=== PATIENT | male | born 1965 | race Caucasian/White ===

== ENCOUNTER → 2021-10-12 | Outpatient (CLI) | payer BC ==
[~2021-10-12] MED LIST: ECOTRIN81 MG PO; FARXIGA10 MG PO; NORVASC10 MG PO; PRAVACHOL20 MG PO; TRADJENTA5 MG PO
== END ==
LOC: EXRD 10:57
DX: R22.42 Localized swelling, mass and lump, left lower limb (principal); M79.661 Pain in right lower leg
CPT/HCPCS: 93971

== ENCOUNTER 2022-05-18 15:05 | Outpatient (CLI) | payer BC, MEDICARE ==
[~2022-05-18 15:05] MED LIST changes: -PRAVACHOL20 MG PO; +PRAVASTATIN SOD20 MG PO
[2022-05-18] MEDS ORDERED: JANUVIA100 MG PO (15:17)
[2022-05-18] MEDS ORDERED: GLIMEPIRIDE4 MG PO (15:18)
== END 2022-05-18 15:49 | disposition short-term general hospital (02) ==
LOC: CATH 15:05 → CDU 15:05 → UNDOADMIN 15:05 → CATH 15:49
DX: I21.19 ST elevation (STEMI) myocardial infarction involving other coronary artery of inferior wall (principal); I25.10 Atherosclerotic heart disease of native coronary artery without angina pectoris; I25.5 Ischemic cardiomyopathy; I12.9 Hypertensive chronic kidney disease with stage 1 through stage 4 chronic kidney disease, or unspecified chronic kidney disease; E11.22 Type 2 diabetes mellitus with diabetic chronic kidney disease; E78.5 Hyperlipidemia, unspecified; N18.30 Chronic kidney disease, stage 3 unspecified
CPT/HCPCS: 85347; 99152; C1769; C1894; J0171; J0461; J1644; J2250; J2370; J3010; J7040; Q9965